=== PATIENT | female | born 1960 | race Caucasian/White ===

== ENCOUNTER 2018-03-20 13:10 | Outpatient (CLI) | payer BC ==
--- NOTE | 2018-03-20 15:24 | RAD ---
LUMBAR SPINE FOUR VIEWS: HISTORY: Low back pain. FINDINGS: Five lumbar type vertebrae. Pedicles are intact. Vertebral body height and AP alignment are maintai cee. Mild rightward convex rotatory scoliotic curvature. Disk space narrowing at the L3-L4 level. Osteophytosis throughout the vertebral bodies and facets. No abnormal translational motion upon flexion or extension. IMPRESSION: Mild to moderate lumbar spondylosis. POS: [facility]
== END 2018-03-20 13:11 | disposition home or self-care (01) ==
LOC: TBSIIMAG 13:10
PROVIDERS: ATTEND Surgery
DX: M51.16 Intervertebral disc disorders with radiculopathy, lumbar region (principal); M47.26 Other spondylosis with radiculopathy, lumbar region; M54.2 Cervicalgia
CPT/HCPCS: 72110

== ENCOUNTER 2018-07-21 09:25 | Outpatient (CLI) | payer BC ==
[2018-07-21 09:57] LABS: Hemoglobin 14.4 g/dL (12.0-16.0); Mean Corpuscular HGB CONC 33.4 g/dL (32.0-36.0); Mean Platelet Volume 6.3 fL (7.4-10.4); Platelet Count 337 thou/uL (130-400); RBC Distribution Width 11.6 % (11.5-14.5); Red Blood Cell (RBC) Count 5.13 mill/uL (4.20-5.40); White Blood Cell (WBC) Count 5.7 thou/uL (4.8-10.8)
[2018-07-21 10:26] LABS: Albumin 4.4 g/dL (3.5-5.0)
[2018-07-21 10:27] LABS: Chloride 103 mmol/L (98-107); Potassium 4.1 mmol/L (3.5-5.1); Sodium 141 mmol/L (136-145)
[2018-07-21 10:28] LABS: Calcium 10.1 mg/dL (7.8-10.44)
[2018-07-21 10:29] LABS: Globulin 2.8 g/dL (2.4-3.5); Glucose 105 mg/dL (70-105); Protein, Total 7.2 g/dL (6.0-8.3)
[2018-07-21 10:30] LABS: Bilirubin, Total 0.4 mg/dL (0.2-1.2); Carbon Dioxide 29 mmol/L (22-29)
[2018-07-21 10:32] LABS: Alkaline Phosphatase 52 U/L (40-150); Calc. Creatinine Clearance 0 mL/min (70-130); Estimated GFR-MDRD 66; LDH 191 U/L (125-220); Phosphorus 3.5 mg/dL (2.3-4.7)
[2018-07-21 10:33] LABS: BUN (Urea Nitrogen) 20 mg/dL (9.8-20.1)
[2018-07-21 10:34] LABS: AST (SGOT) 16 U/L (5-34); Bilirubin, Direct 0.2 mg/dL (0.1-0.3)
[2018-07-21 10:35] LABS: ALT (SGPT) 18 U/L (8-55); Uric Acid 7.4 mg/dL (2.6-6.0)
[2018-07-21 11:06] LABS: Anion Gap 13 mmol/L (10-20)
--- NOTE | 2018-07-21 13:35 | CT ---
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 FINDINGS: Inspiration is somewhat less than optimal. There appears to be some minimal thickening of right sided major and minor fissures with one poorly defined ground glass opacity adjacent to the fissure measur ing approximately 0.5 cm which could possibly represent a pleural based pulmonary nodule. There is no mediastinal mass or adenopathy. No pleural effusion or pericardial effusion. Small hiatal hernia. No liver metastasis. Status post cholecystectomy. Pancreas, spleen, and adrenal glands are unremarkable . No evidence for renal calculus or acute obstruction, right and left renal collecting systems are mildly dilated. In the region of the mid right ureter there is a tiny less than 0.2 cm opacity which could present a nonobstructing right renal calculus and possibly an even smaller slightly more dista l calcification. These could represent small phleboliths immediately adjacent to the ureter. If that is a clinical concern, a follow up CT urogram might be considered to help differentiate a non obstructing calculus from immediately adjacent phlebolith. No evidence of adenopathy within the abdom en or pelvis. No abscess or abnormal fluid collection. Normal appearing appendix. IMPRESSION: Mild linear stranding in both lungs with under inflation bilaterally. Minimal right sided pleural thi ckening with a questionable 0.5 cm ground glass opacity which is adjacent to the fissure. This could conceivably represent a small early lung nodule. Follow up chest CT scan in 3 months in this regard i s recommended. Small hiatal hernia. Status post cholecystectomy. Slight fullness of both right and le ft renal upper collecting systems with questionable tiny right mid ureteral calculus/calculi. Conside r follow up CT urogram for further assessment in this regard. No evidence of adenopathy within the me diastinum or abdomen or pelvis. No evidence for overt metastasis. POS: [facility]
== END 2018-07-21 09:26 | disposition home or self-care (01) ==
LOC: CT 09:25
PROVIDERS: ATTEND Internal Medicine Hematology & Oncology
DX: C88.4 Extranodal marginal zone B-cell lymphoma of mucosa-associated lymphoid tissue [MALT-lymphoma] (principal); J92.9 Pleural plaque without asbestos; K44.9 Diaphragmatic hernia without obstruction or gangrene; Z90.49 Acquired absence of other specified parts of digestive tract
CPT/HCPCS: 36415; 71260; 74177; 80053; 82248; 83615; 84100; 84550; 85027

== ENCOUNTER 2018-08-23 10:54 | Outpatient (CLI) | payer BC ==
[2018-08-23 11:39] LABS: #Eosinphils 0.3 thou/uL (0.0-0.7); #Lymphocytes 1.5 thou/uL (1.20-3.40); #Monocytes 0.3 thou/uL (0.11-0.59); #Neutrophils 3.7 thou/uL (1.40-6.50); %Basophils 0.7 % (0.0-1.0); %Eosinophils 5.4 % (0.0-10.0); %Lymphocytes 25.4 % (21.0-51.0); %Monocytes 5.1 % (0.0-10.0); %Neutrophils 63.3 % (42.0-75.0); Mean Corpuscular Hemoglobin 28.3 pg (27.0-31.0); Mean Corpuscular Volume 83.2 fL (78.0-98.0); Mean Platelet Volume 6.3 fL (7.4-10.4); Platelet Count 323 thou/uL (130-400); RBC Distribution Width 11.7 % (11.5-14.5); Red Blood Cell (RBC) Count 4.94 mill/uL (4.20-5.40); White Blood Cell (WBC) Count 5.9 thou/uL (4.8-10.8)
[2018-08-23 12:05] LABS: Anion Gap 12 mmol/L (10-20); BUN (Urea Nitrogen) 20 mg/dL (9.8-20.1); Calc. Creatinine Clearance 0 mL/min (70-130); Calcium 9.8 mg/dL (7.8-10.44); Carbon Dioxide 29 mmol/L (22-29); Chloride 103 mmol/L (98-107); Estimated GFR-MDRD 72; Glucose 97 mg/dL (70-105); Potassium 3.7 mmol/L (3.5-5.1); Sodium 140 mmol/L (136-145)
--- NOTE | 2018-08-25 20:49 | EKG ---
Test Reason : Blood Pressure : / mmHG Vent. Rate : 063 BPM Atrial Rate : 063 BPM P-R Int : 142 ms QRS Dur : 094 ms QT Int : 442 ms P-R-T Axes : 045 -13 034 degrees QTc Int : 452 ms Normal sinus rhythm Cannot rule out Anterior infarct , age undetermined Abnormal ECG No previous ECGs available Confirmed by Eusebio HAHN ([id number]) on 08/25/2018 8:48:45 PM Referred By: [email or web address] Confirmed By:Eusebio HAHN
== END 2018-08-23 10:55 | disposition home or self-care (01) ==
LOC: LABBT 10:54
DX: Z01.818 Encounter for other preprocedural examination (principal); C85.90 Non-Hodgkin lymphoma, unspecified, unspecified site
CPT/HCPCS: 80048; 85025; 93005; 93010

== ENCOUNTER 2018-08-31 05:54 | Day surgery (SDC) | payer BC ==
[2018-08-23 11:30] VITALS: BMI 43.6
[2018-08-31] MEDS ORDERED: Fentanyl 100 MCG/2 ML VIAL ONE (06:22)
[2018-08-31] MEDS ORDERED: Bupivacaine HCl 0.25%/Epi 0.0005/PF 10 ML VIAL FS ONE (06:40)
[2018-08-31] MEDS ORDERED: Ketorolac Tromethamine 30 MG/ML VIAL ONE (07:00)
[2018-08-31] MEDS ORDERED: CEFAZOLIN 2 GM/50 ML BAG ONE (07:00)
[2018-08-31] MEDS ORDERED: Bacitracin Zinc Ointment 30 gm TUBE ONE (08:45)
[2018-08-31] MEDS ORDERED: HYDROcodone/Acetaminophen 5/325 mg Tablet ONE (10:41)
[2018-08-31] MEDS ORDERED: Rocuronium Bromide 10 MG/ML (10ML VIAL) ONE (16:23)
[2018-08-31] MEDS ORDERED: Lidocaine 1% PF 5 ML VIAL ONE (16:23)
[2018-08-31] MEDS ORDERED: Glycopyrrolate 0.2 MG/ML 5 ML SYRINGE ONE (16:23)
[2018-08-31] MEDS ORDERED: Ondansetron PF 4 MG/2 ML Vial ONE (16:23)
[2018-08-31] MEDS ORDERED: PROPOFOL 200 MG/20 ML VIAL ONE (16:23)
--- NOTE | 2018-09-01 16:03 | OP ---
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 PROCEDURES PERFORMED: Excision of 2 separate areas of cutaneous lymphoma of her right upper back with complex closure of both lesions. The area of excision was 7 x 9 cm in the lateral back and 6 x 7 cm in the medial back. This included the lesion plus a margin of close to 1 cm in all directions. ANESTHESIA: General endotracheal. INDICATIONS: The patient is a 57-year-old obese white female. She recently was found to have a couple of erythematous lesions on her right upper back. Biopsy of this revealed cutaneous lymphoma. Investigation revealed no definite other locations of the lymphoma. She therefore presents at this time for excision of these two areas. DESCRIPTION OF OPERATION: Informed consent was obtained, the patient was taken to the operating room where general endotracheal anesthesia obtained. The patient in supine position. She was then rolled over into prone position. Right upper back was prepped with ChloraPrep and draped in sterile fashion. Attention was turned first to the medial lesion. This was locally excised in a vertical fashion, obtaining approximately 1 cm margins and excising an area that was 6 x 7 cm. The specimen was removed intact, tagged for orientation, and passed off the field. Meticulous hemostasis obtained with electrocautery. The wound edges were mobilized so as to obtain a cutaneous flap including over a centimeter of fatty tissue circumferentially. The wound was then closed in layers using a running suture of 3-0 Vicryl to approximate deep layers and close the space. Skin edges were then approximated using a running vertical mattress suture. Attention was then turned to the lateral lesion. This was larger than the medial lesion. An identical procedure was performed except in a transverse fashion. The dimensions of the 2nd lesion were 7 x 9 cm. Again, the wound edges were undermined and then approximated with Vicryl and Prolene. Antibiotic ointment was placed on both incisions and dry gauze dress was placed externally. There were no complications. The patient tolerated the procedure well and was taken to the recovery room in stable condition. Job ID: [id number]
== END 2018-08-31 11:20 | disposition home or self-care (01) ==
LOC: SDC 05:54
PROVIDERS: ATTEND Specialist
PROC: 0HB6XZZ Excision of Back Skin, External Approach (ICD-10-PCS; principal; 2018-08-31)
DX: C88.4 Extranodal marginal zone B-cell lymphoma of mucosa-associated lymphoid tissue [MALT-lymphoma] (principal); I10 Essential (primary) hypertension; E07.9 Disorder of thyroid, unspecified; Z79.899 Other long term (current) drug therapy; Z88.8 Allergy status to other drugs, medicaments and biological substances
CPT/HCPCS: 88305; J0131; J1885; J2001; J2405; J2704; J3010